=== PATIENT | female | born 1975 | race Caucasian/White ===

== ENCOUNTER 2017-10-28 12:38 | Emergency (ER) | payer OTHER ==
[~2017-10-28] VITALS: Ht 175.3 cm; Wt 78.1 kg
[2017-10-28 13:22] LABS: HEMOGLOBIN 12.2 G/DL (11.9-15.5); MCH 28.9 PG (29.0-34.0); MCHC 33.9 G/DL (30.0-36.0); MCV 85.3 FL (83-99); PLATELET COUNT 243 K/uL (156-360); RBC DIS.WIDTH-CV 12.6 % (11.8-14.6); RBC DIS.WIDTH-SD 37.8 % (39-53); RED BLOOD COUNT 4.22 M/uL (3.80-5.20); WHITE BLOOD COUNT 6.9 K/uL (4.1-10.2)
[2017-10-28 13:32] LABS: CHLORIDE 101 mEq/L (99-109); POTASSIUM 4.1 mEq/L (3.7-5.4); SODIUM 135 mEq/L (136-147)
[2017-10-28 13:34] LABS: GLUCOSE 95 mg/dL (70-99)
[2017-10-28 13:37] LABS: CREATININE 0.7 mg/dL (0.6-1.3); GFR ESTIMATE (CALCULATED) > 59 mL/min/
[2017-10-28 13:38] LABS: UREA NITROGEN (BUN) 10 mg/dL (9-23)
[2017-10-28 13:44] LABS: TROP-I INTERPRETATION NEGATIVE; TROPONIN-I < 0.01 ng/mL (0.0-0.30)
[2017-10-28] MEDS ORDERED: DOXYCYCLINE MO100 MG PO (18:20)
[2017-10-28] MEDS ORDERED: PERCOCET 5/31 TABLET PO (18:20)
[2017-10-28] MEDS ORDERED: MOTRIN800 MG PO (18:20)
[2017-10-28 18:31] VITALS: BP 127/86
== END 2017-10-28 18:38 | disposition home or self-care (01) ==
LOC: EME 12:38
DX: J18.9 Pneumonia, unspecified organism (principal); R09.1 Pleurisy; M32.9 Systemic lupus erythematosus, unspecified
CPT/HCPCS: 71046; 71275; 76705; 80048; 84484; 85027; 93005; 99281; 99284; J2270